=== PATIENT | male | born 2000 | race Caucasian/White ===

== ENCOUNTER 2020-03-15 13:30 | Observation (INO) ==
--- NOTE | 2020-03-05 12:45 | Anesthesiology Consultation ---
Date of Service March 05, 2020 Assessment & Plan Chart Review Chart Review: Acceptable Risk for Surgery and Patient NOT seen in Pre Admission Testing Consults Requested none ASA ASA2 Proposed Anesthesia Anesthesia Type: General History Surgery Operation Date: 03/15/20 09:45 Proposed Procedures p Left Clavicle Removal Hardware - Mark Spencer DO s Debridement Clavicle Ulcer with Possible Theraskin graft - Mark Spencer DO Height/Weight Height: 6 ft Weight: 65.771 kg Allergies Allergy/AdvReac Type Severity Reaction Status Date / Time No Known Allergies Allergy Verified 03/05/20 11:22 Medications Home Medications Medication Instructions Recorded Confirmed Last Taken albuterol sulfate 1 inh INHALATION QID PRN 03/05/20 03/05/20 Unknown furosemide [Lasix] 20 mg PO QAM 03/05/20 03/05/20 Unknown insulin aspart U-100 [Novolog 0 unit SUBCUT TIDM PRN 03/05/20 03/05/20 Unknown Flexpen U-100 Insulin] insulin glargine [Lantus U-100 36 unit SUBCUT HS 03/05/20 03/05/20 Unknown Insulin] Past Medical History Medical History Asthma well controlled Diabetes mellitus type 1 Exercise / Class Metabolic Activity II 4-5 Yardwork/Stairs/Walk up hill Past Family History Family History Other No family history of adverse response to anesthesia Past Surgical History Surgical History History of open reduction and internal fixation (ORIF) procedure Left Clavicle (2011) Past Anesthesia History No Hx of Anesthesia Complications and No Family Hx of Anesthesia Complications History of PONV No Hx of PONV and No Hx of Motion Sickness Social History Smoking Status: Never smoker tobacco type: smokeless tobacco Do You Dip or Chew Tobacco: Yes (2 cans/week) Hx Alcohol Use: No Hx Substance Use: No substance use type: does not use Testing Electrocardiogram Date: 02/23/20 Findings: + NSR @ (@ 78;LAE)
--- NOTE | 2020-03-12 08:53 | History & Physical Report ---
Date of Service March 12, 2020 Assessment & Plan (1) Retained orthopedic hardware: Schedule a Left Clavicle Removal Hardware, Debridement Clavicle Ulcer with Possible Theraskin graft for 03.15.2020. All potential risks, benefits, complications, alternatives, and rehab have been discussed with the patient and he wishes to proceed. Plan for d/c home on ASA 81 mg daily for 4 wks for post op DVT prophylaxis. 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 He healed well and had no issues until the past year. His type 1 diabetes has been uncontrolled and he started having an ulceration over the left clavicle. Eventually, he was referred back to us for evaluation and after testing to r/o osteomyelitis of the clavicle, he is now being set up for surgical removal of the plate and debridement of the ulcer. Allergies Allergy/AdvReac Type Severity Reaction Status Date / Time No Known Allergies Allergy Verified 03/05/20 11:22 Home Medications Home Medications Medication Instructions Recorded Confirmed Type albuterol sulfate 1 inh INHALATION QID PRN 03/05/20 03/05/20 History furosemide [Lasix] 20 mg PO QAM 03/05/20 03/05/20 History insulin aspart U-100 [Novolog 0 unit SUBCUT TIDM PRN 03/05/20 03/05/20 History Flexpen U-100 Insulin] insulin glargine [Lantus U-100 36 unit SUBCUT HS 03/05/20 03/05/20 History Insulin] Past Med/Surg History Medical History Asthma well controlled Diabetes mellitus type 1 Surgical History History of open reduction and internal fixation (ORIF) procedure Left Clavicle (2011) Family History Other No family history of adverse response to anesthesia Social History (System 02/26/20 @ 07:47 by Zakiya Ragland) Smoking Status: Never smoker Second Hand Exposure: No; Do You Dip or Chew Tobacco: Yes (2 cans/week); Tobacco Cessation Education Requested by Patient: No Hx Alcohol Use: No Hx Substance Use: No Preferred Language: Occitan Communication Ability: Effective Burglar Alarm Assembler Required: No Beliefs That Will Affect Care: None Current Living Situation: Family Other Information That Helps Us Care for You: No Feels Safe at Home: Yes Safety Concerns: Feels Safe At This Time Assistive Devices: None Physical Exam Constitutional: well developed, well nourished and + thin; no acute distress ENMT: external ear and nose normal, oropharynx normal Neck: trachea midline, no thyromegaly Respiratory: normal respiratory effort, lungs clear to auscultation Cardiovascular: Rate/Rhythm: regular rate and regular rhythm Gastrointestinal (Abdomen): normal bowel sounds, soft, nontender, no hepatosplenomegaly Musculoskeletal: Shoulder: + shoulder abnormal to inspection (left shoulder ulceration over the midshaft clavicle. Visible hardware.) and + surgical incision (left clavicle with central ulceration); no skin erythema and no ecchymosis Skin: no rashes, warm and dry Neurologic: normal touch/pain/proprioception Psychiatric: A+Ox3, euthymic affect Speech: normal rate/rhythm/volume of speech Lymphatic: no cervical or axillary lymphadenopathy
[~2020-03-15 13:30] MED LIST: LR 15ML/HR IV SCH; ceFAZolin 2000MG 2,000 MG/15 ML SYR IV SCH
--- NOTE | 2020-03-15 14:53 | History & Physical Bridge Note ---
Date of Service March 15, 2020 History & Physical Bridge Note I have examined the patient, reviewed the History & Physical and in the interval since the performance of the History & Physical I have noted the following changes of clinical significance: no changes noted
[2020-03-15] MEDS ORDERED: LIDOCAINE HCL 2% 2 ML VIAL/AMP(20MG/ML) INFIL ONE (16:01)
[2020-03-15] MEDS ORDERED: fentaNYL citrate 100 MCG/2 ML VIAL ONE ×2 (16:01→19:46)
[2020-03-15] MEDS ORDERED: MIDAZOLAM HCL 1 MG/ML 2ML VIAL ONE (16:01)
[2020-03-15] MEDS ORDERED: PROPOFOL IV EMULSION 10 MG/ML 20 ML VIAL IV ONE (16:01)
[2020-03-15] MEDS ORDERED: BUPIVACAINE 0.5 % 5 MG/1 ML MPF 30ML VIAL ONE (18:53)
[2020-03-15] MEDS ORDERED: EPINEPHrine INJ 1 MG/ML AMP ONE (18:53)
[2020-03-15] MEDS ORDERED: BACITRACIN INJ 50,000 UNIT VIAL ONE (18:54)
[2020-03-15] MEDS ORDERED: PHENYLEPHRINE 100MCG/ML 5ML SYR ONE (19:57)
--- NOTE | 2020-03-15 20:18 | Fluoroscopy Report ---
FL clavicle LT CLINICAL HISTORY: LEFT CLAVICLE HARDWARE REMOVAL COMPARISON STUDY: None FLUOROSCOPY TIME: 1 second. NUMBER OF FLUOROSCOPIC IMAGES: 1 FINDINGS: There is a single fluoroscopic spot film of the left clavicle. No metallic hardware is visu alized within the left clavicle status post reported are not removal IMPRESSION: Intraoperative fluoroscopic spot image of the left clavicle revealing no clavicular hard downey ACT 112: Negative or not required by law. Electronically signed by: Keo Castellanos M.D. 03/15/2020 8:16 PM
--- NOTE | 2020-03-15 20:18 | Post Operative Brief Note ---
Immediate Post Op Note v1 Date of Surgery March 15, 2020 Pre & Post Diagnosis Operation Date: 03/15/20 13:50 Pre-Op Diagnosis: Left Shoulder Ulcer 2cm x 1cm x 0.5cm; Painful Retained Exposed Clavicle Hardware plate and screws Post-Op Diagnosis: Left Shoulder Ulcer 2cm x 1cm x 0.5cm; Painful Retained Exposed Clavicle Hardware plate and screws I identified the patient and participated in the time-out.: Yes Procedure Operation Date: 03/15/20 13:50 Actual Procedures p Left Clavicle Removal Hardware plate and screws (Left) - Mark Spencer DO s Debridement Clavicle Ulcer 2cm x 1cm x 0.5cm(Left) - Mark Spencer DO Surgeon Mark Spencer DO [facility] Bill Cano PA-C Estimated Blood Loss 4 Findings Consistent with Post-Op Diagnosis Specimens Aerobic anaerobic Gram stain clavicular ulcer left and deep periosteum Anesthesia Type General Regional Complications none Disposition Accompanied Patient To Recovery: No Disposition: Recovery Room
[2020-03-15] MEDS ORDERED: INSULIN ASPART PER UNIT SC STA (20:49)
[2020-03-15] MEDS ORDERED: ATROPINE SULFATE 0.1 MG/ML 10ML SYR IV PRN (20:51)
[2020-03-15] MEDS ORDERED: ePHEDrine sulfate 50 MG/ML AMP IV PRN (20:51)
[2020-03-15] MEDS ORDERED: ONDANSETRON INJ 2 MG/ML 2 ML VIAL IV PRN ×2 (20:51→22:15)
[2020-03-15] MEDS ORDERED: fentaNYL citrate 100 MCG/2 ML VIAL IV PRN (20:51)
[2020-03-15] MEDS ORDERED: NALOXONE HCL 0.4 MG/1 ML VIAL/CARP IV PRN (22:15)
[2020-03-15] MEDS ORDERED: ALBUTEROL HFA 8 GM INHALER INH PRN (22:15)
[2020-03-15] MEDS ORDERED: KETOROLAC 30 MG/ML VIAL IV PRN (22:15)
[2020-03-15] MEDS ORDERED: ALUMINUM/MAGNESIUM SUSP 30 ML UDC PO PRN (22:15)
[2020-03-15] MEDS ORDERED: bisacodyL 10 MG SUPP PR PRN (22:15)
[2020-03-15] MEDS ORDERED: oxyCODONE HCL IR 5 MG TAB (IMMEDIATE RELEASE) PO PRN (22:15)
[2020-03-15] MEDS ORDERED: SODIUM CHLORIDE 0.9% 1000ML 1,000 ML IV SCH (22:15)
[2020-03-15] MEDS ORDERED: diphenhydrAMINE Capsule 25 MG CAP PO PRN (22:15)
[2020-03-15] MEDS ORDERED: SENNA 8.6 MG TAB PO SCH (22:15)
[2020-03-15] MEDS ORDERED: HYDROmorphone INJ 0.5 MG/0.5 ML SYR IV PRN (22:15)
[2020-03-15] MEDS ORDERED: MAGNESIUM HYDROXIDE SUSP 30 ML UDC PO PRN (22:15)
[2020-03-15] MEDS ORDERED: METOCLOPRAMIDE HCL INJ 5 MG/ML 2 ML VIAL IV PRN (22:15)
[2020-03-15] MEDS ORDERED: PHARMACY GLYCEMIC MGMT CONSULT PRN (22:25)
[2020-03-15] MEDS ORDERED: INSULIN GLARGINE SOLOSTAR 100 UNITS/ML 3 ML PEN SC SCH (22:30)
[2020-03-15] MEDS ORDERED: INSULIN HUMAN REGULAR PER UNIT 4 UNITS in SYRINGE 3.96 ML IV ONE (22:30)
[2020-03-15] MEDS: DOCUSATE SODIUM 100 MG CAP PO SCH (22:48)
[2020-03-15] MEDS: ACETAMINOPHEN 500 MG TAB PO SCH (22:48)
--- NOTE | 2020-03-15 23:25 | Anesthesiology Progress Note ---
Date of Service March 15, 2020 Anesthesia Post Procedure Vital Signs Vital Signs: Temp Pulse Pulse Resp BP Pulse Ox 03/15/20 22:59 36.2 C L 57 L 16 112/67 98 03/15/20 22:30 36.5 C 69 16 115/72 99 03/15/20 22:00 36.3 C L 65 16 119/70 98 03/15/20 21:40 36.4 C L 73 13 107/69 99 03/15/20 21:30 67 13 117/62 99 03/15/20 21:20 68 15 114/60 96 03/15/20 21:10 71 12 101/57 L 99 03/15/20 21:00 69 12 93/59 L 99 03/15/20 20:50 63 12 102/55 L 100 03/15/20 20:40 68 14 109/51 L 100 03/15/20 20:33 36.2 C L 68 15 109/49 L 100 03/15/20 14:09 36.7 C 87 18 119/84 99 Transfer of Care Handoff Completed per policy Notes Mental Status: alert / awake / arousable and participated in evaluation Patient Amnestic to Procedure: Yes Nausea / Vomiting: adequately controlled Pain: adequately controlled Airway Patency, RR, SpO2: stable & adequate BP & HR: stable & adequate Hydration State: stable & adequate Anesthetic Complications: no major complications apparent and Pt Satisfied with anesthetic care Notes: Pt reports that a normal BG is in the 200s. In PACU, BG was 400 - given 10 units of aspart with BG trending down appropriately prior to being discharged to the floor.
--- NOTE | 2020-03-16 01:26 | Consultation Report ---
DATE OF CONSULTATION: 03/15/2020 CHIEF COMPLAINT: Status post hardware removal from his left clavicle region. HISTORY OF PRESENT ILLNESS: This is a 20-year-old male with past medical history significant for type 1 diabetes, history of DKAs, diabetic skin ulcer, allergic rhinitis, asthma moderate persistent, atopic dermatitis, who is status post hardware removal of the left clavicle region. The patient says he had surgery for his clavicle done in 2011 and since last November the hardware was exposed. S/p removal of hardware today. Denies any pain. Currently resting comfortably and hemodynamically stable. Denies any headache, no blurred vision, no earache, no runny nose, no sore throat, no cough, no chest pain, no shortness of breath, no nausea, no abdominal pain. No complaints. ALLERGIES: EGG. PAST MEDICAL HISTORY: As mentioned above. PAST SURGICAL HISTORY: Circumcision. MEDICATIONS: The patient is on Lasix 20 mg p.o. daily, albuterol 2 puffs every 4 hours p.r.n., Lantus 36 units at bedtime, and insulin sliding scale. FAMILY HISTORY: Significant for father has allergies; mother has asthma, allergies, hypertension. SOCIAL HISTORY: Single. No smoking, no alcohol, no drug use. REVIEW OF SYSTEMS: As per HPI. Rest of the review of systems negative. PHYSICAL EXAMINATION: GENERAL: The patient is thin, not in acute distress. VITAL SIGNS: Temperature 36.2, pulse 57, respiratory rate 16, blood pressure 112/67, oxygen 98% on room air. HEENT: Atraumatic. CARDIOVASCULAR: S1, S2 heard, regular rate and rhythm, no murmur, no gallop. RESPIRATORY SYSTEM: Normal AP diameter. No accessory muscle use. No wheezing, no crackles. ABDOMEN: Soft, bowel sounds present. Nontender. No distention. CENTRAL NERVOUS SYSTEM: Cranial nerves II-XII grossly intact, nonfocal. MUSCULOSKELETAL: Status post hardware removal from the left clavicle region. Dressing intact. EXTREMITIES: No edema, no erythema. LABORATORY DATA: Unavailable. ASSESSMENT AND PLAN: 1. Status post left clavicle hardware removal, management as per orthopedics. 2. Type 1 diabetes. Continue his home Lantus 36 units at bedtime and placed on insulin sliding scale. Will follow the blood sugars. 3. Asthma. Continue his home inhalers, currently stable. 4. Deep venous thrombosis prophylaxis and disposition as per orthopedics. MTDD
[2020-03-16] MEDS ORDERED: INSULIN ASPART 100 UNITS/ML 3 ML PEN SQ PRN (02:00)
[2020-03-16] MEDS ORDERED: INSULIN ASPART 100 UNITS/ML 3 ML PEN SQ ONE (02:30)
[2020-03-16] MEDS: ceFAZolin 2000MG 2,000 MG/15 ML SYR IV SCH ×2 (02:39→12:10)
--- NOTE | 2020-03-16 03:28 | Operative Report (OR) ---
DATE OF OPERATION: 03/15/2020 PREOPERATIVE DIAGNOSES: 1. Left shoulder clavicular ulcer 2 cm x 1 cm x 0.5 cm. 2. Painful retained exposed clavicular hardware plate and screws. POSTOPERATIVE DIAGNOSES: 1. Left shoulder clavicular ulcer 2 cm x 1 cm x 0.5 cm. 2. Painful retained exposed clavicular hardware plate and screws. PROCEDURES: 1. Left clavicle removal of hardware, plate and screws. 2. Debridement clavicle ulcer 2 x 1 x 0.5 cm including skin, subcutaneous tissue, periosteum and bone. SURGEON: Mark Spencer DO. SHIPPING TECHNICIAN: Bill Cano PA-C who was present for patient positioning, sterile prep and drape, management of retractors and instruments. He was present through the critical portions of the case including wound closure, application of sterile dressing and transport of the patient to recovery. ANESTHESIA: General, regional. SPECIMENS: Aerobic, anaerobic, Gram stain, left shoulder/clavicular ulcer deep. DRAINS: None. COMPLICATIONS: None. BLOOD LOSS: 4 mL. PERTINENT HISTORY: This is a 20-year-old type 1 diabetic who developed a unknown ulceration over the midshaft of his left clavicular ORIF site at the site of the plate and screws approximately 9 months ago. He and his primary care physician had tried to treat it conservatively with oral antibiotics; however, this failed. He presented to our clinic. He had radiographs, an Indium-111 white cell scan and noted to have local infection with a healed clavicle fracture with retained hardware. The patient was then scheduled for surgery as indicated. All potential risks, benefits, complications, alternatives, rehab, potential for incomplete relief of symptoms, need for further surgery, DVT, PE, , persistent pain, swelling, scarring, weakness, neurovascular injury, wound complications, hardware failure, nonunion, malunion and bone fracture were discussed with the patient and his mother. They decided to proceed with procedure as indicated. DESCRIPTION OF PROCEDURE: The patient was taken to the operative suite, placed supine on the operating table. After review of consent and identification of proper operative site, the patient was anesthetized, LMA was placed, the left upper extremity was then sterilely prepped and draped in usual fashion and the left shoulder site was then incised with a 15 blade scalpel just anterior to the clavicle plate and screws at the site of prior incision. This incision was then deepened through subcutaneous tissue and skin and also through the scar tissue present. Geraldine rakes were applied. Electrocautery was used to achieve hemostasis and irrigation was performed with sterile normal saline. The ulceration was then carefully debrided with a 15 blade scalpel measures 2 cm x 1 cm x 0.5 cm. Skin and the subcutaneous tissue was then sharply excised at the ulcer site revealing fresh tissue beneath. Next, the 15 blade scalpel was then used to incise the clavipectoral fascia down to the level of the periosteum and plate. Next, the full-thickness skin flap was then elevated with Geraldine rakes revealing the plate and screws. Next, the screw was then loosened with a hand screwdriver and then a power milk delivery driver was then used to remove the screws in their entirety. The plate was then loosened with a 10 mm osteotome and mallet and then removed with a freer elevator. The sharpened superior overgrowth of bone of the clavicle was then carefully removed with a rongeur and then smoothed with a bone rasp. A culture was obtained at the ulcer site down to the level of the plate and screws periosteum. This was then sent for aerobic, anaerobic, Gram stain. Next, the entire incision and dissection site was then copiously irrigated with bacitracin and sterile saline lavage until clear with pulsatile lavage. Next, top gloves and top sheet were changed and final radiographs were obtained noting complete removal of all hardware. Once this was completed, the tissue was then closed using 3-0 nylon sutures. The site was then injected with 0.5% Marcaine with epinephrine and a sterile compressive dressing was applied. The patient was awakened and taken to recovery in stable condition. I attest to the content of the Intraoperative Record and any orders documented therein. Any exception s are noted below.
[2020-03-16 05:44] LABS: Hematocrit (blood only) 33.5 % (42-52); Hemoglobin 11.4 g/dL (14.0-18.0); Mean Corpuscular Hemoglobin 31.8 pg (25-34); Mean Corpuscular Volume 93.6 fL (80-100); Mean Platelet Volume 9.8 fL (7.4-10.4); Platelet Count 381 K/uL (130-400); RDW Coefficient of Variation 12.2 % (11.5-14.5); RDW Standard Deviation 41.5 fL (36.4-46.3); Red Blood Count 3.58 M/uL (4.7-6.1); White Blood Count 14.31 K/uL (4.8-10.8)
[2020-03-16] MEDS: ACETAMINOPHEN 500 MG TAB PO SCH (05:56)
[2020-03-16 06:10] LABS: BUN Creatinine Ratio 20.4 (10-20); Blood Urea Nitrogen 12 mg/dl (7-18); Calcium 8.5 mg/dl (8.5-10.1); Carbon Dioxide 31 mmol/L (21-32); Chloride 103 mmol/L (98-107); Creatinine Clr Calc Pharmacy 182.8 ml/min; Est GFR (African American) > 150.0; Est GFR (Non-African American) 144.7; Glucose 160 mg/dl (70-99); Potassium 3.9 mmol/L (3.5-5.1); Sodium 139 mmol/L (136-145)
[2020-03-16] MEDS: DOCUSATE SODIUM 100 MG CAP PO SCH (08:22)
[2020-03-16] MEDS: INSULIN ASPART 100 UNITS/ML 3 ML PEN SQ SCH ×2 (08:53→12:33)
[2020-03-16] MEDS ORDERED: FUROSEMIDE 20 MG TAB PO SCH (09:00)
[2020-03-16] MEDS ORDERED: MULTIVITAMIN TAB PO SCH (09:00)
--- NOTE | 2020-03-16 09:32 | Orthopedic Progress Note ---
Date of Service March 16, 2020 Assessment & Plan (1) Retained orthopedic hardware: Postop day #1 status post 1. Left clavicle removal of hardware, plate and screws. 2. Debridement clavicle ulcer 2 x 1 x 0.5 cm including skin, subcutaneous tissue, periosteum and bone IV Ancef x2 doses postoperatively. Pain control ASA 81 mg daily for 4 wks for post op DVT prophylaxis. Discharge planningwe will discharge home today after 2 IV antibiotic doses with p.o. Keflex and Bactrim for 10 days. (2) Skin ulcer due to diabetes mellitus: (3) Type 1 diabetes mellitus: Admission and Anticipated Discharge Date Admission Date: March 15, 2020 Subjective Doing well. States he does not have any pain in his left shoulder. Has some stiffness with any motion of the shoulder. States his been walking around his room in the hallways. Denies chest pain, shortness of breath, lightheadedness. Physical Exam Constitutional: well developed, well nourished and + thin; no acute distress ENMT: external ear and nose normal, oropharynx normal Neck: trachea midline, no thyromegaly Respiratory: normal respiratory effort, lungs clear to auscultation Cardiovascular: Rate/Rhythm: regular rate and regular rhythm Gastrointestinal (Abdomen): normal bowel sounds, soft, nontender, no hepatosplenomegaly Musculoskeletal: Shoulder: + surgical incision (left clavicle dressing clean/dry/intact); no skin erythema and no ecchymosis Skin: no rashes, warm and dry Neurologic: normal touch/pain/proprioception Psychiatric: A+Ox3, euthymic affect Speech: normal rate/rhythm/volume of speech Lymphatic: no cervical or axillary lymphadenopathy Results & Data ([facility]) Vital Signs (Past 12 Hours) Vital Signs Temp Pulse Pulse Resp BP Pulse Ox 03/16/20 07:10 36.4 C L 55 L 15 111/55 L 97 03/16/20 04:36 36.8 C 58 L 16 108/65 96 03/16/20 00:58 36.5 C 62 18 103/60 95 03/16/20 00:11 36.6 C 59 L 16 125/63 97 03/15/20 22:59 36.2 C L 57 L 16 112/67 98 03/15/20 22:30 36.5 C 69 16 115/72 99 03/15/20 22:00 36.3 C L 65 16 119/70 98 03/15/20 21:40 36.4 C L 73 13 107/69 99
--- NOTE | 2020-03-22 08:56 | Discharge Summary ---
Date of Service March 22, 2020 Admission HPI Per Admitting Provider This is a patient who underwent a left clavicle ORIF as a 11 year old in 2011. He healed well and had no issues until the past year. His type 1 diabetes has been uncontrolled and he started having an ulceration over the left clavicle. Eventually, he was referred back to us for evaluation and after testing to r/o osteomyelitis of the clavicle, he is now being set up for surgical removal of the plate and debridement of the ulcer. Principal Diagnosis Left clavicle exposed hardware Discharge Exam Constitutional well developed, well nourished and + thin; no acute distress ENMT external ear and nose normal, oropharynx normal Neck trachea midline, no thyromegaly Respiratory normal respiratory effort, lungs clear to auscultation Cardiovascular Rate/Rhythm: regular rate and regular rhythm Gastrointestinal (Abdomen) normal bowel sounds, soft, nontender, no hepatosplenomegaly Musculoskeletal Shoulder: + surgical incision (left clavicle dressing clean/dry/intact); no skin erythema and no ecchymosis Skin no rashes, warm and dry Neurologic normal touch/pain/proprioception Psychiatric A+Ox3, euthymic affect Speech: normal rate/rhythm/volume of speech Lymphatic no cervical or axillary lymphadenopathy Discharge Data Allergies Allergy/AdvReac Type Severity Reaction Status Date / Time egg Allergy Intermediate Verified 03/15/20 14:03 Consultations 03/15/20 22:15 Consult Case Management - Discharge Planning Routine Consult Hospitalist Routine Procedures Performed Operation Date: 03/15/20 13:50 Actual Procedures p Left Clavicle Removal Hardware(Left) - Mark Spencer DO s Debridement Clavicle Ulcer 2cm x 1cm x 0.5cm(Left) - Mark Spencer DO Ordered Studies 03/15/20 05:00 US - OR guided needle placemen Routine 03/15/20 13:50 FL clavicle LT Routine FL fluoroscopy <1hr Routine Hospital Course (1) Retained orthopedic hardware: Patient was admitted and underwent the noted procedure. On postop day #1, he was doing well. He has some stiffness in the shoulder but minimal pain. Pain was controlled with medications. Once he had a second dose of IV antibiotics, he was discharged home later that day with oral antibiotics. Postop day #1 status post 1. Left clavicle removal of hardware, plate and screws. 2. Debridement clavicle ulcer 2 x 1 x 0.5 cm including skin, subcutaneous tissue, periosteum and bone IV Ancef x2 doses postoperatively. Pain control ASA 81 mg daily for 4 wks for post op DVT prophylaxis. Discharge planningwe will discharge home today after 2 IV antibiotic doses with p.o. Keflex and Bactrim for 10 days. (2) Skin ulcer due to diabetes mellitus: (3) Type 1 diabetes mellitus: Total Time Total Time Spent Total Time Spent (In Minutes): 20 Total Time Includes: Examination of the Patient, Discharge Planning and Medication Reconciliation Discharge Plan Discharge Items Patient Disposition: Home - Self-Care Reason For Visit: Left Shoulder Ulcer, Exposed Clavicle Hardware Discharge Diagnosis: Left shoulder exposed hardware Activity: Per Instructions section Lifting: No more than 10 pounds Non-emergency contact: Surgeon Call non-emergency contact if: your pain is not controlled, your pain is worsening and your temperature is above 101 Follow-up/Referrals: Doonvan Salcedo M.D. [Primary Care Provider] - Diet: Carb Count or DM1 Addtl Attending Provider Instructions: ACTIVITY RECOMMENDATIONS: * Avoid lifting anything heavier than a medium water glass until your first post operative visit. SPECIAL CARE INSTRUCTIONS: * Your bandage should be left in place for 72 hours. * Some drainage onto the dressing may occur. This is normal. * If the bandage feels excessively tight, you may loosen the elastic bandage. Then call the physician's office for further instructions. * If possible, keep your hand elevated above the level of your heart for the first 2 post operative days. You may use a sling if necessary. * You should move your fingers regularly (50-100 motions per hour) unless otherwise instructed. SPECIAL PRECAUTIONS: * If you notice increased drainage, fever over 101 degrees F. or severe, unremitting pain, call your physician/office at . * You may have been prescribed pain medication. If you experience nausea and/or skin rash, discontinue this medication and contact our office for an alternative medication. FOLLOW UP VISIT: If appointment is not already scheduled: Please call [facility] to make a follow-up appointment for 2 weeks after your surgery at . Pending Studies at Discharge: No Stand-Alone Forms: My [employer], Smoking Cessation Medications and DC Order Prescriptions: New sulfamethoxazole-trimethoprim [Bactrim DS] 800-160 mg tablet 1 tab PO BID 7 Days Qty: 20 RF: 0 aspirin 81 mg tablet,delayed release (DR/EC) 81 mg PO DAILY Qty: 60 RF: 0 oxycodone-acetaminophen [Percocet] 5-325 mg tablet 1 tab PO Q4H PRN (Reason: pain) Qty: 20 RF: 0 cephalexin [Keflex] 500 mg capsule 500 mg PO Q6H 7 Days Qty: 28 RF: 0 Continued Lantus U-100 Insulin 100 unit/mL Solution 36 unit SUBCUT HS RF: 0 furosemide [Lasix] 20 mg Tablet 20 mg PO QAM RF: 0 insulin aspart U-100 [Novolog Flexpen U-100 Insulin] 100 unit/mL (3 mL) Insulin Pen 0 unit SUBCUT TIDM PRN (Reason: sliding scale) RF: 0 albuterol sulfate 90 mcg/actuation Hfa Aerosol Inhaler 1 inh INHALATION QID PRN (Reason: sob) RF: 0 Discharge Orders: Discharge Order (Routine); Ordered 03/16/20 Ordered By: Bill Cano Admission Data Admit Date/Time: 03/15/20 20:40 Attending Provider: Mark Spencer Admit Provider: Mark Spencer Primary Care Provider: Donovan Salcedo Other Providers: Samuel Trejo ; Wilfred Velazco ; Hever Quarles ; Natividad Jimenez ; Pia Eng ; Traci Waite ; Beryl Coffman ; Lazaro Thompson ; Amilcar Dahl ; Randy Remy ; Sary Bone ; Kristin David ; Viridiana Vega ; Donnell Haile ; Noman Quezada ; Suha Singh ; Jabier Urban ; Brittni Jorgensen ; Noman Owens ; Zakiya Otero ; Chelsea De León ; Bharti Gautam ; Rosa Landry I. ; Ryder Osborne Other Interventions: Discharge Summary Assessment (RN) Last Done: 03/16/20 11:14
== END 2020-03-16 13:25 | disposition home or self-care (01) ==
LOC: ASU 13:30 → 3W 13:30